=== PATIENT | male | born 1980 | race Caucasian/White ===

== ENCOUNTER 2017-04-15 11:59 | Emergency (ER) | payer BC ==
[~2017-04-15] VITALS: Ht 177.8 cm; Wt 83.1 kg
[2017-04-15 12:08] VITALS: TEMP 36.6; Ht 177.8 cm; Wt 83.1 kg
[2017-04-15] MEDS ORDERED: XYLOCAINE 1%/SOD BICARB 20 ML VIAL INFIL ONE (12:45)
--- NOTE | 2017-04-15 13:36 | DIAGNOSTIC IMAGING REPORT ---
R FINGER(S) MIN 2 VIEWS ROUTINE CLINICAL HISTORY: 36 years-old Male presenting with R 4th fingertip lac. TECHNIQUE: Frontal, oblique, and lateral views of the right fourth finger were obtained. COMPARISON: None. FINDINGS: Soft tissue irregularity at the distal aspect of the right fourth finger consistent with laceration. Subjacent irregularity of the tuft of the distal phalanx of the fourth finger food and beverage assistant with fracture. No malalignment. Distal interphalangeal joint preserved. IMPRESSION: Osseous injury of the tuft of the distal phalanx subjacent to the distal right fourth finger laceration. Electronically signed by: James Melendez M.D. 04/15/2017 1:35 PM Dictated Date/Time: 04/15/2017 1:34 PM
[2017-04-15 15:00] VITALS: BP 140/86; PULSE 74; O2SAT 98
--- NOTE | 2017-04-15 16:03 | EMERGENCY ROOM VISIT NOTE ---
History First contact with patient: 12:19 Chief Complaint: LACERATION/CUT (SUT/DERMABOND) Stated Complaint: CUT HAND/FINGER Nursing Triage Summary: Patient states "I was using an electric production control planner and my right ring finger got caught up on it." Patient arrived with dressing intact. Bleeding controlled at this time. History of Present Illness The patient is a 36 year old male who presents to the Emergency Room with complaints of a laceration to the tip of his right fourth finger. The patient was using an electric planar, wearing gloves at the time when the planar blade caught the glove, pulling the finger into the blade. The patient denies any significant bleeding, and rates his discomfort a 3 out of 10. Tetanus immunization is up-to-date. The patient is [id number]. Review of Systems 10 system review was performed and was negative except for pertinent positives and negatives as indicated in history of present illness Past Medical/Surgical History Medical Problems: (1) Anxiety Surgical Problems: (1) No history of previous surgery Family History FH: cancer FH: heart disease Social History Smoking Status: Never Smoker Alcohol Use: occasionally Marital Status: Housing Status: lives with family Occupation Status: employed Current/Historical Medications No Active Prescriptions or Reported Meds Physical Exam Vital Signs Date Time Temp Pulse Resp B/P (MAP) Pulse Ox O2 Delivery O2 Flow Rate FiO2 04/15/17 15:00 74 18 140/86 98 04/15/17 12:08 36.6 65 18 138/91 100 Room Air Physical Exam CONSTITUTIONAL: Healthy and well nourished. Alert and oriented X 3 with positive affect. HEENT: Normocephalic, atraumatic. Pupils equal, round and reactive. NECK: Full active range of motion without discomfort. MUSCULOSKELETAL: Examination of the right fourth fingertip shows a severely macerated wound involving the distal nail plate and bulk of the fingertip. There are for closely approximated, curvilinear and parallel laceration planes. There is no significant soft tissue loss appreciated. The refill is less than 2 seconds, and does not have any active bleeding. The tissue does ahsan with pressure. No tenderness to palpation of the PIP or DIP joint. INTEGUMENTARY: No rash or other significant dermatologic conditions noted. NEUROLOGIC: Right fourth fingertip is sensory intact. Medical Decision & Procedures ER Provider Diagnostic Interpretation: My interpretation of right fourth finger x-rays shows a bony tuft fracture/ injury. No dislocation noted. Radiologist report is as follows: R FINGER(S) MIN 2 VIEWS ROUTINE CLINICAL HISTORY: 36 years-old Male presenting with R 4th fingertip lac. TECHNIQUE: Frontal, oblique, and lateral views of the right fourth finger were obtained. COMPARISON: None. FINDINGS: Soft tissue irregularity at the distal aspect of the right fourth finger consistent with laceration. Subjacent irregularity of the tuft of the distal phalanx of the fourth finger maintenance assistant with fracture. No malalignment. Distal interphalangeal joint preserved. IMPRESSION: Osseous injury of the tuft of the distal phalanx subjacent to the distal right fourth finger laceration. Procedure Fingertip laceration repair and irrigation was performed under digital block anesthesia after receiving verbal consent from the patient. Using buffered 1% lidocaine without epinephrine, good digital block anesthesia was administered. Sterile field was created. The wound was copiously pressure irrigated with normal saline. The wound was then approximated using 5-0 nylon simple interrupted sutures. A bacitracin dressing was applied. Total repaired laceration length was approximately 4 cm. ED Course Patient history and physical exam were performed. Nurse's notes were reviewed. Vital signs were reviewed and were normal. X-rays of the right fourth finger shows a bony tuft fracture/injury. Laceration repair was performed under digital block anesthesia. The patient was provided additional verbal and written wound care instructions. Ice and elevation for swelling. Ibuprofen and Tylenol in alternating fashion for baseline pain relief. The patient was provided a prescription for Keflex, and encouraged to follow-up with Dr. Teran for further reevaluation and management. The patient was happy with plan of care, voice understanding of all discharge instructions, and denied any pain at the conclusion of my exam. Medical Decision [place] Drug Monitoring Program Search Results: patient reviewed within database Medication Reconcilliation Current Medication List: was personally reviewed by vt Blood Pressure Screening Patient's blood pressure: Normal blood pressure Impression Primary Impression: Fracture of phalanx of right ring finger Additional Impression: Laceration of right ring finger with complication Departure Information Prescriptions No Active Prescriptions or Reported Meds Referrals Arvind Brennan M.D.([facility]) (PCP) Patient Instructions My [facility] Problem Qualifiers Primary Impression: Fracture of phalanx of right ring finger Encounter type: initial encounter Fracture type: open Phalanx: distal Fracture alignment: displaced Qualified Codes: S62.634B - Displaced fracture of distal phalanx of right ring finger, initial encounter for open fracture
== END 2017-04-15 15:01 | disposition home or self-care (01) ==
LOC: C.EDB 12:01 → C.EDD 15:01
DX: S62.634B Displaced fracture of distal phalanx of right ring finger, initial encounter for open fracture (principal); W29.8XXA Contact with other powered hand tools and household machinery, initial encounter